=== PATIENT | male | born 1960 | race Caucasian/White ===

== ENCOUNTER → 2016-08-28 | Outpatient (CLI) | payer OTHER ==
[~2016-08-28] MED LIST: GADOBUTROL 10 ML VIAL IVP ONE
== END ==
LOC: FIMAGING 13:12
PROVIDERS: ATTEND Physician Assistant
DX: M50.91 Cervical disc disorder, unspecified, high cervical region (principal); Z98.1 Arthrodesis status
CPT/HCPCS: A9585

== ENCOUNTER 2017-07-21 21:17 | Emergency (ER) | payer OTHER ==
[2017-07-21] MEDS ORDERED: ONDANSETRON 4 MG/2 ML VIAL IVP ONE (21:35)
[2017-07-21] MEDS ORDERED: ONDANSETRON 4 MG/2 ML VIAL ONE (21:36)
[2017-07-21] MEDS ORDERED: NS 1,000 ML IV ONE (21:46)
[2017-07-21] MEDS ORDERED: KETOROLAC 30 MG/1 ML SDV IVP ONE (21:46)
[2017-07-21 21:51] LABS: PLATELET COUNT 252 10^3/uL (150-400)
--- NOTE | 2017-07-21 21:58 | EDPHY ---
H & P Time Seen by Provider: 07/21/17 21:46 HPI/ROS: CHIEF COMPLAINT: Right flank pain HISTORY OF PRESENT ILLNESS: 57-year-old male presents with right flank pain. Sudden onset of severe right flank pain 3 hr ago, waxing and waning since then. The pain radiates to the right lower quadrant and groin. Associated with nausea. No allev/aggrev factors and no urinary symptoms. No prior history of kidney stone. REVIEW OF SYSTEMS: Constitutional: No fever, no chills Eyes: No visual changes ENT: No sore throat Respiratory: No cough, no shortness of breath Cardiac: No chest pain Gastrointestinal: no vomiting Genitourinary: no dysuria Musculoskeletal: No myalgias Skin: No rash Neurological: No headache, no weakness Psychiatric: No depression Past Medical/Surgical History: Gout Smoking Status: Never smoked Physical Exam: General Appearance: Alert, anxious, writhing in pain Eyes: Pupils equal and round, no conjunctival pallor or injection ENT, Mouth: Mucous membranes moist Neck: Normal inspection Respiratory: Lungs are clear to auscultation Cardiovascular: Regular rate and rhythm Gastrointestinal: Abdomen is soft, right sided tenderness Back: Right CVA tenderness Neurological: A&O, nonfocal, normal gait Skin: Warm and dry, no rash Extremities: Normal inspection Psychiatric: Mood and affect normal Constitutional: Initial Vital Signs Temperature (C) 36.4 C 07/21/17 21:20 Heart Rate 97 07/21/17 21:20 Respiratory Rate 22 H 07/21/17 21:20 Blood Pressure 119/85 H 07/21/17 21:20 O2 Sat (%) 98 07/21/17 21:20 O2 Delivery Mode Room Air Allergies/Adverse Reactions: No Known Allergies Allergy (Verified 07/21/17 21:23) Home Medications: Medication Instructions Recorded Allopurinol [Allopurinol 300 MG 450 mg PO DAILY 09/17/12 (RX)] Ondansetron Odt [Zofran Odt 4 mg 4 mg PO Q4 PRN #10 tab 07/21/17 (*)] Tamsulosin HCl [Flomax 0.4 MG (RX)] 0.4 mg PO DAILY #4 cap 07/21/17 oxyCODONE/APAP 5/325 [Percocet 1 - 2 tab PO Q4 PRN #20 tab 07/21/17 5/325 (*)] Medical Decision Making - Diagnostics Imaging Results: Abdomen/Pelvis CT 07/21/17 21:47 Impression: 2 separate right ureteral calculi identified at the level of the pelvic inlet, with associated moderate hydronephrosis. Results called to Dr. Grecia Garcia at 10:20 PM. Attention: This CT examination is specifically designed to evaluate patients who are clinically suspected of having acute obstructive uropathy. This examination does not use radiographic contrast, and as such, provides only a limited evaluation of the abdomen, pelvis and retroperitoneum. If there is further clinical suspicion for pathological conditions other than obstructive uropathy, a complete CT evaluation of the abdomen and pelvis utilizing intravenous, oral, and rectal contrast should be considered. Imaging: Discussed imaging studies w/ order caller Radiologist ED Course/Re-evaluation: Clinical presentation consistent with renal colic. Morphine 4 mg IV and Zofran 4 mg IV given without relief. IV normal saline 1 L and Toradol 15 mg IV given. [place] somewhat better after IV Toradol, but continued to have severe pain. Dilaudid 1 mg IV given. The patient went to CT scan and when he returned the pain was much better. CT scan reveals to ureteral calculi, 7 mm and 4 mm, associated with moderate hydronephrosis. Patient currently has mild discomfort. Flomax 0.4 mg orally given. 11:10 p.m.-the pain has almost completely resolved. Patient would like to go home. Abd remains benign. Warning signs given. He understands that he is somewhat unlikely to pass the 7 mm stone. He will follow up with Urology. He return to the emergency department for uncontrolled pain or any concerns. Differential Diagnosis: Differential diagnosis includes though it is not limited to appendicitis, cholecystitis, diverticulitis, pyelonephritis, bowel perforation, small bowel obstruction. - Data Points Laboratory Results: Laboratory Results 07/21/17 21:34 07/21/17 21:34 Medications Given: Discontinued Medications Hydromorphone HCl (Dilaudid) 1 mg IVP EDNOW ONE Stop: 07/21/17 22:26 Last Admin: 07/21/17 22:29 Dose: 1 mg Sodium Chloride (Ns) 1,000 mls @ 0 mls/hr IV EDNOW ONE; Wide Open PRN Reason: Protocol Stop: 07/21/17 21:47 Last Admin: 07/21/17 22:00 Dose: 1,000 mls Lidocaine HCl 100 mg/ Sodium (Chloride) 110 mls @ 600 mls/hr IV EDNOW ONE Stop: 07/21/17 22:57 Last Admin: 07/21/17 23:29 Dose: Not Given Ketorolac Tromethamine (Toradol) 15 mg IVP EDNOW ONE Stop: 07/21/17 21:47 Last Admin: 07/21/17 22:00 Dose: 15 mg Morphine Sulfate (Morphine) 4 mg IVP EDNOW ONE Stop: 07/21/17 21:36 Last Admin: 07/21/17 21:40 Dose: 4 mg Ondansetron HCl (Zofran) 4 mg IVP EDNOW ONE Stop: 07/21/17 21:36 Last Admin: 07/21/17 21:39 Dose: 4 mg Ondansetron HCl (Zofran Odt 4 Mg Prepack#2) 1 btl TAKEHOME EDNOW ONE Stop: 07/21/17 23:13 Last Admin: 07/21/17 23:21 Dose: 1 btl Oxycodone/Acetaminophen (Percocet 5/325mg Prepack#4) 1 btl TAKEHOME EDNOW ONE Stop: 07/21/17 23:12 Last Admin: 07/21/17 23:21 Dose: 1 btl Oxycodone/Acetaminophen (Percocet 5/325) 2 tab PO EDNOW ONE Stop: 07/21/17 23:18 Last Admin: 07/21/17 23:21 Dose: 2 tab Tamsulosin HCl (Flomax) 0.4 mg PO EDNOW ONE Stop: 07/21/17 22:52 Last Admin: 07/21/17 23:13 Dose: 0.4 mg Departure - Departure Disposition: Home, Routine, Self-Care Clinical Impression: Renal colic on right side Condition: Good Instructions: Ondansetron (By mouth), Narcotic-Analgesic/Acetaminophen (By mouth), Kidney Stones (ED) Additional Instructions: 1. Take Ibuprofen or Motrin 600 mg by mouth three times a day. 2. Percocet as needed for severe pain 3. Flomax as directed 4. Zofran as needed for nausea 5. Strain urine as directed 6. Return to the Emergency Department for intractable pain, fever or vomiting. 7. Followup with the urologist you have been referred to for unimproved symptoms. Referrals: DAYDAY SIMMONS [Primary Care Provider] - As per Instructions Trinity Osullivan MD [Medical Doctor] - As per Instructions (Call to make an appointment.) Prescriptions: Ondansetron Odt [Zofran Odt 4 mg (*)] 4 mg PO Q4 PRN #10 tab PRN Reason: Nausea oxyCODONE/APAP 5/325 [Percocet 5/325 (*)] 1 - 2 tab PO Q4 PRN #20 tab PRN Reason: pain Tamsulosin HCl [Flomax 0.4 MG (RX)] 0.4 mg PO DAILY #4 cap
[2017-07-21] MEDS ORDERED: HYDROmorphONE/DILAUDID 2 MG/ML INJ ONE (22:23)
[2017-07-21] MEDS ORDERED: HYDROmorphONE/DILAUDID 2 MG/ML INJ IVP ONE (22:25)
[2017-07-21] MEDS ORDERED: LIDOCAINE 1% 100 MG in NS 100 ML IV ONE (22:47)
[2017-07-21] MEDS ORDERED: TAMSULOSIN HCL 0.4 MG CAP PO ONE (22:51)
[2017-07-21] MEDS ORDERED: OXYCODONE/APAP 5/325MG PREPACK#4 BTL TAKEHOME ONE (23:11)
[2017-07-21] MEDS ORDERED: ONDANSETRON 4MG PREPACK#2 BTL TAKEHOME ONE (23:12)
[2017-07-21] MEDS ORDERED: OXYCODONE/APAP 5/325 TAB PO ONE (23:17)
[2017-07-21 23:31] VITALS: BP 124/95
== END 2017-07-21 23:29 | disposition home or self-care (01) ==
DX: N23 Unspecified renal colic (principal); E86.9 Volume depletion, unspecified
CPT/HCPCS: 96374; J1170; J1885; J2270; J2405

== ENCOUNTER → 2017-07-24 | Outpatient (CLI) | payer OTHER | LOC: FIMAGING 14:19 | PROVIDERS: ATTEND Specialist | DX: N20.1 Calculus of ureter (principal) ==

== ENCOUNTER → 2018-08-14 | Outpatient (CLI) | payer MEDICAID | LOC: FIMAGING 12:49 | PROVIDERS: ATTEND Family Medicine | DX: Z13.820 Encounter for screening for osteoporosis (principal); T38.7X5A Adverse effect of androgens and anabolic congeners, initial encounter; Z87.81 Personal history of (healed) traumatic fracture ==